=== PATIENT | female | born 1990 | race Caucasian/White ===

== ENCOUNTER 2019-12-29 15:01 | Inpatient (IN) | payer BC, SELFPAY ==
[2019-12-29 15:22] VITALS: BP 149/90; PULSE 89; RESP 20; TEMP 36.6; O2SAT 94; BMI 14.8
[2019-12-29 15:34] VITALS: BP 114/78; PULSE 76; RESP 20; TEMP 36.3; O2SAT 96
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
[2019-12-29 16:21] LABS: Add Urine Microscopic? NO
[2019-12-29 16:26] LABS: Bilirubin Urine Neg (NEGATIVE); Blood Urine Neg (Negative); Glucose Urine UA Norm (Normal); Ketones Urine Negative (Negative); Leukocyte Esterase Urine Negative (Negative); Nitrate Urine Negative (Negative); Protein Urine Neg (Negative); Urine Appearance Clear (CLEAR); Urine Color Yellow (Yellow); Urobilinogen Urine Norm (Negative); pH Urine 5 (5-7)
[2019-12-29 16:28] LABS: HCG Qualitative Urine. Negative (Negative)
[2019-12-29 16:36] LABS: Basophils % 0.3 %; Eosinophils % 0.3 %; Hematocrit 40.7 % (37.0-47.0); Hemoglobin 13.7 g/dL (11.5-15.3); Lymphocytes # 1.3 10^3/uL (0.8-4.8); Lymphocytes % 13.3 %; Mean Corpuscular HGB Conc 33.7 g/dL (30.0-36.0); Mean Corpuscular Hemoglobin 30.4 pg (28.0-34.0); Mean Corpuscular Volume 90.2 fL (81-99); Mean Platelet Volume 10.8 fL (7.4-10.4); Monocytes # 0.4 10^3/uL (0.2-0.9); Monocytes % 4.7 %; Neutrophils # 7.6 10^3/uL (1.8-7.7); Neutrophils % 81.1 %; Nucleated Red Blood Cells % 0 %; Platelet Count 239 10^3/cmm (130-400); Red Blood Count 4.51 10^6/uL (4.1-5.3); Red Cell Distribution Width 12.9 % (12.1-15.1); White Blood Count 9.4 10^3/uL (4.0-10.0)
[2019-12-29 16:50] LABS: Amphetamines Screen Urine Negative (Negative); Barbiturates Screen Urine Negative (Negative); Benzodiazepines Screen Urine Negative (Negative); Cocaine Screen Urine Negative (Negative); Opiate Screen Urine Negative (Negative); PCP Screen Urine Negative (Negative); THC Screen Urine Positive (Negative)
[2019-12-29 16:57] LABS: Alanine Aminotransferase 10 U/L (0-33); Albumin Level 4.4 g/dL (3.5-5.2); Alkaline Phosphatase 57 IU/L (35-105); Anion Gap 14.8 (5-19); Aspartate Amino Transferase 13 U/L (0-32); Blood Urea Nitrogen 10 mg/dL (6-20); Calcium 9.9 mg/dL (8.5-10.5); Carbon Dioxide 24 mmol/L (22-29); Chloride 105 mmol/L (98-107); Globulin 2.6 g/dL (1.3-4.6); Glomerular Filtration Rate 83.7 mL/min (90-130); Glucose 126 mg/dL (65-115); Potassium 3.8 mmol/L (3.5-5.1); Salicylate < 0.3 mg/dL (3-10); Sodium 140 mmol/L (136-145); Thyroid Stimulating Hormone 0.35 uIU/mL (0.27-4.20); Total Bilirubin 0.2 mg/dL (0.15-1.2)
[2019-12-29 16:58] LABS: Acetaminophen < 5.0 ug/mL (10-30); Alcohol Level < 10 mg/dL (0-10)
[2019-12-29] MEDS: LORazepam 0.5 mg Tablet PO (17:33)
[2019-12-29 17:42] VITALS: BP 141/73; PULSE 86; RESP 16; TEMP 36.4; O2SAT 98
[2019-12-29 20:14] VITALS: BP 119/72; PULSE 73; RESP 14; TEMP 36.6; O2SAT 97
[2019-12-29] MEDS: hyDROXYzine 25 mg Capsule 50 MG PO (21:19)
[2019-12-30] MEDS: nicotine 2 mg Gum BUCCAL (05:25)
[2019-12-30 06:00] VITALS: BP 111/74; PULSE 71; RESP 18; TEMP 36.5; O2SAT 97
[2019-12-30] MEDS: hyDROXYzine 25 mg Capsule 50 MG PO ×3 (09:27→20:49)
[2019-12-30] MEDS: ziprasidone hcl 20 mg Capsule PO (09:27)
[2019-12-30] MEDS: multivitamin therapeutic Tablet 1 TAB PO (09:27)
[2019-12-30] MEDS: fluoxetine 20 mg Capsule PO (09:27)
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
[2019-12-30 13:42] VITALS: BP 111/74; PULSE 71; RESP 18; TEMP 36.5; O2SAT 97
[2019-12-30 16:34] VITALS: BP 117/61; PULSE 65; RESP 18; TEMP 36.7; O2SAT 98
[2019-12-30] MEDS: ziprasidone hcl 20 mg Capsule 40 MG PO (17:11)
[2019-12-30 20:31] VITALS: BP 98/65; PULSE 60; RESP 14; TEMP 36.8; O2SAT 97
[2019-12-31] MEDS: nicotine 2 mg Gum BUCCAL (00:17)
[2019-12-31 06:00] VITALS: BP 106/71; PULSE 53; RESP 18; TEMP 36.3; O2SAT 100
[2019-12-31] MEDS: hyDROXYzine 25 mg Capsule 50 MG PO ×3 (07:56→21:04)
[2019-12-31] MEDS: fluoxetine 20 mg Capsule PO (07:56)
[2019-12-31] MEDS: multivitamin therapeutic Tablet 1 TAB PO (07:56)
[2019-12-31] MEDS: ziprasidone hcl 20 mg Capsule 40 MG PO ×2 (07:56→17:00)
[2019-12-31 11:58] VITALS: BP 120/72; PULSE 61; RESP 17; TEMP 36.9; O2SAT 97
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
[2019-12-31 20:31] VITALS: BP 125/73; PULSE 74; RESP 16; TEMP 37; O2SAT 97
[2020-01-01] MEDS: nicotine 2 mg Gum BUCCAL ×2 (02:15→08:43)
[2020-01-01 05:33] VITALS: BP 115/76; PULSE 70; RESP 15; TEMP 36.7; O2SAT 98
[2020-01-01 06:00] VITALS: BMI 16.0
[2020-01-01] MEDS: multivitamin therapeutic Tablet 1 TAB PO (08:44)
[2020-01-01] MEDS: hyDROXYzine 25 mg Capsule 50 MG PO ×3 (08:44→21:24)
[2020-01-01] MEDS: fluoxetine 20 mg Capsule PO (08:44)
[2020-01-01] MEDS: ziprasidone hcl 20 mg Capsule 40 MG PO ×2 (08:44→17:03)
[2020-01-01 12:12] VITALS: BP 119/80; PULSE 70
[2020-01-01 14:00] VITALS: BP 118/68; PULSE 74; RESP 17; TEMP 36.7; O2SAT 98
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
[2020-01-01 21:35] VITALS: BP 114/59; PULSE 98; RESP 19; TEMP 36.8; O2SAT 97
[2020-01-02] MEDS: nicotine 2 mg Gum BUCCAL ×3 (04:17→12:56)
[2020-01-02 06:00] VITALS: BP 110/73; PULSE 61; RESP 19; TEMP 36.8; O2SAT 100
[2020-01-02] MEDS: fluoxetine 20 mg Capsule PO (08:49)
[2020-01-02] MEDS: ziprasidone hcl 20 mg Capsule 40 MG PO (08:49)
[2020-01-02] MEDS: hyDROXYzine 25 mg Capsule 50 MG PO (08:49)
[2020-01-02] MEDS: multivitamin therapeutic Tablet 1 TAB PO (08:49)
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
[2020-01-02 13:21] VITALS: BP 110/73; PULSE 61; RESP 19; TEMP 36.8; O2SAT 100
== END 2020-01-02 15:15 | disposition home or self-care (01) | DRG 881 ==
LOC: ER 15:38 → NP 17:16
PROVIDERS: Admitting Provider Psychiatry & Neurology Psychiatry; Emergency Provider Family Medicine; Family Provider Physician Assistant; Visit Provider Psychiatry & Neurology Psychiatry
DX: F32.9 Major depressive disorder, single episode, unspecified (principal); F12.20 Cannabis dependence, uncomplicated; F17.210 Nicotine dependence, cigarettes, uncomplicated
CPT/HCPCS: 12345; 36415; 80053; 80307; 81003; 81025; 84443; 85025; 99284; A9270